=== PATIENT | male | born 1965 | race African-American/Black ===

== ENCOUNTER → 2018-08-27 | Outpatient (REF) ==
[~2018-08-27] MED LIST: CORTISPORIN OP7.5 ML OP; DEPO-MEDROL80 MG/ML IM; KETOROLAC60 MG/2 ML IM; LORTAB 1010 MG PO; NAPROSYN500 MG PO; NO HOME MEDS; RYBIX ODT50 MG PO; TRAMADOL HCL50 MG PO; [UNRECOGNIZED DRUG - OTHER]
== END | disposition home or self-care (01) | DRG 951 ==
LOC: PAGE 09:00
PROVIDERS: ATTEND Nurse Practitioner Family
DX: Z02.9 Encounter for administrative examinations, unspecified (principal)

== ENCOUNTER 2018-10-13 13:18 | Emergency (ER) | payer OTHER ==
[~2018-10-13] VITALS: Ht 185.4 cm; Wt 139.1 kg
[2018-10-13] MEDS ORDERED: LISINOPRIL20 M1 PO (15:09)
[2018-10-13 15:37] VITALS: BP 149/87
== END 2018-10-13 15:37 | disposition home or self-care (01) | DRG 93 ==
LOC: ED 13:18
DX: G89.29 Other chronic pain (principal); M54.5 Low back pain; E78.5 Hyperlipidemia, unspecified; S39.92XS Unspecified injury of lower back, sequela; X58.XXXS Exposure to other specified factors, sequela